=== PATIENT | male | born 2000 | race Caucasian/White ===

== ENCOUNTER 2021-06-27 19:13 | Emergency (ER) | payer OTHER ==
[~2021-06-27] VITALS: Ht 165.1 cm; Wt 61.2 kg
--- NOTE | 2021-06-27 19:31 | NUR ---
PT AAOX4. BIBRA 89 C/O OD ON FENTANYL. GIVEN 2PUFFS OF NARCAN. PLACED IN BED 14 ON MONITOR AND PULSE OX. AWAITING ER MD FOR EVAL AND ORDERS.
[2021-06-27] MEDS ORDERED: NALO4SPR NS (19:44)
--- NOTE | 2021-06-27 22:36 | NUR ---
Patient discharged to home in stable condition. Written and verbal after care instructions given. Patient verbalizes understanding of instruction.
[2021-06-27 23:12] VITALS: BP 126/72
== END 2021-06-27 23:12 | disposition home or self-care (01) ==
LOC: ER 19:31
DX: T40.601A Poisoning by unspecified narcotics, accidental (unintentional), initial encounter (principal); R11.10 Vomiting, unspecified; Y92.89 Other specified places as the place of occurrence of the external cause